=== PATIENT | female | born 1950 | race Caucasian/White ===

== ENCOUNTER 2020-09-21 00:58 | Emergency (ER) | payer MEDICARE, OTHER ==
[~2020-09-21] VITALS: Ht 167.6 cm; Wt 79.4 kg
[2020-09-21] VITALS (8 sets, daily range): BP systolic 173–207; BP diastolic 80–126
--- NOTE | 2020-09-21 01:14 | NUR ---
ED Nurse Note: pt walked into ED s/p mechanical fall and now experiencing pain in left elbow/arm. pt's left arm appears swollen with bump near the elbow. Pt reports she broke her hand 2 years ago. Bilateral radial pulses strong, bilateral hands warm, pt able to move fingers. Denies numbness, tingling.
--- NOTE | 2020-09-21 01:20 | NUR ---
ED Nurse Note: Pt reports history of HTN, does not take any medication. EDMD at bedside when pt stated her SBP 180-200 is her normal. EDMD advised pt to seek PMD and f/u to control BP.
--- NOTE | 2020-09-21 01:36 | Emergency Room Report ---
History of Present Illness General Chief Complaint: Multiple Trauma/Fall Source: Patient Present Illness HPI Patient is a 70-year-old female presents for increased upper extremity pain. Patient had recent fall. Reports have increased pain to the elbow and forearm. Has been able to move the hand normally. Injury occurred approximately 3 hours prior to arrival. Prior history of wrist fracture on the same side. Allergies: Coded Allergies: No Known Allergies (Unverified , 09/21/20) COVID-19 Screening Contact w/high risk pt: No Experienced COVID-19 symptoms?: No COVID-19 Testing performed SHEET HANGER: No Patient History Past Medical History: see triage record Reviewed Nursing Documentation: PMH: Agreed; PSxH: Agreed Nursing Documentation-PMH Past Medical History: No Stated History Review of Systems All Other Systems: negative except mentioned in HPI Physical Exam Vital Signs Date Time Temp Pulse Resp B/P (MAP) Pulse Ox O2 Delivery O2 Flow Rate FiO2 09/21/20 01:05 98.4 112 18 180/88 (118) 98 Room Air General Appearance: well appearing, no apparent distress, alert, GCS 15 Head: normocephalic, atraumatic ENT: hearing grossly normal, normal voice Neck: full range of motion, supple Respiratory: normal inspection, lungs clear, no respiratory distress, speaking full sentences Neurologic: alert, motor strength/tone normal, blindstitch lining feller III-XII nml as tested, oriented x3, normal gait Psychiatric: mood/affect normal Skin: no rash Procedures Procedural Sedation Consent: Written Time out called at: 02:45 Pre-Sedation Assessment: Eval. Immed. Prior to Sed, Pre-proc Edu. done, Plan for Sedation Discuss Airway Assessment (Malampati): I Heart: normal Lungs: normal Abdomen: normal Extremities: normal Procedures/Plans: Closed Reduction Plan for Moderate Sedation: Propofol ASA Score: II Procedure Narrative Patient was given successive 10 mg aliquots of propofol until adequately sedated. Patient was given total of 40 mg. She had subsequent adequate sedation. Elbow was reduced with axial traction and flexion. Post procedure x- ray showed adequate elbow joint reduction. Patient was placed in a posterior splint. She was neurovascularly intact after procedure. Pulses were intact. Good perfusion Communication: No Apparent Limitation Mental Status: Awake Respiration: Unlabored Skin Condition: WNL Abdomen: WNL Nausea: NO Vomiting: NO Medical Decision Making Diagnostic Impression: Primary Impression: Fall Additional Impressions: Dislocation, elbow closed Elbow fracture, left Hypertension Hyperglycemia ER Course Patient presented after a fall. Differential diagnosis include was not limited to contusion, fracture, dislocation among others. X-ray imaging was ordered to patient's recent trauma. X-ray imaging showed elbow dislocation. Patient was consented for propofol. Patient was sedated with propofol and elbow was reduced with axial traction. Patient tolerated this well. Patient did complain of hip pain however she refused x-ray imaging of the hip. She is placed in a posterior splint. Patient was advised to follow-up with orthopedics. She was given referral for Dr. Stephnes. She is also advised that she should have treatment for her blood pressure and was advised to follow-up with primary care physician for recheck. She is advised to return if worse. This medical record is generated with [employer] financial planning advisor software. There may be some financial planning advisor discrepancies related to use of this software Laboratory Tests Test 09/21/20 02:20 White Blood Count 12.6 K/UL (4.8-10.8) H Red Blood Count 4.31 M/UL (4.20-5.40) Hemoglobin 13.2 G/DL (12.0-16.0) Hematocrit 38.6 % (37.0-47.0) Mean Corpuscular Volume 90 FL (80-99) Mean Corpuscular Hemoglobin 30.7 PG (27.0-31.0) Mean Corpuscular Hemoglobin Concent 34.3 G/DL (32.0-36.0) Red Cell Distribution Width 12.8 % (11.6-14.8) Platelet Count 173 K/UL (150-450) Mean Platelet Volume 11.0 FL (6.5-10.1) H Neutrophils (%) (Auto) % (45.0-75.0) Lymphocytes (%) (Auto) % (20.0-45.0) Monocytes (%) (Auto) % (1.0-10.0) Eosinophils (%) (Auto) % (0.0-3.0) Basophils (%) (Auto) % (0.0-2.0) Sodium Level 140 MMOL/L (136-145) Potassium Level 3.0 MMOL/L (3.5-5.1) L Chloride Level 103 MMOL/L (98-107) Carbon Dioxide Level 26 MMOL/L (21-32) Blood Urea Nitrogen 29 mg/dL (7-18) H Creatinine 1.4 MG/DL (0.55-1.30) H Estimated Glomerular Filtration Rate 37.2 mL/min (>60) Glucose Level 185 MG/DL (74-106) H Calcium Level 9.7 MG/DL (8.5-10.1) Total Bilirubin 0.6 MG/DL (0.2-1.0) Aspartate Amino Transferase (AST) 25 U/L (15-37) Alanine Aminotransferase (ALT) 14 U/L (12-78) Alkaline Phosphatase 78 U/L (46-116) Total Protein 7.8 G/DL (6.4-8.2) Albumin 4.2 G/DL (3.4-5.0) Globulin 3.6 g/dL Albumin/Globulin Ratio 1.2 (1.0-2.7) Last Vital Signs Date Time Temp Pulse Resp B/P (MAP) Pulse Ox O2 Delivery O2 Flow Rate FiO2 09/21/20 01:05 98.4 112 18 180/88 (118) 98 Room Air Status: improved Disposition: HOME, SELF-CARE Condition: Stable Scripts Ibuprofen (IBUPROFEN*) 200 Mg Tablet 200 MG ORAL Q8H, #30 TAB 0 Refills Prov: Kevin Chawla MD 09/21/20 Hydrocodone Bit/Acetaminophen 5-325* (NORCO 5-325 TABLET*) 1 Each Tablet 1 TAB ORAL Q6H PRN for FOR PAIN, #10 TAB 0 Refills Prov: Kevin Chawla MD 09/21/20 Referrals: NOT CHOSEN [facility]/,REFERRING (PCP) Kevin Chawla MD Sep 21, 2020 01:35
--- NOTE | 2020-09-21 02:20 | NUR ---
ED Nurse Note: EDMD at bedside explaining risks and benefits of Elbow relocation under moderate sedation.
--- NOTE | 2020-09-21 02:21 | NUR ---
ED Nurse Note: Consent signed by pt
--- NOTE | 2020-09-21 02:24 | NUR ---
ED Nurse Note: Left elbow relocation under moderate sedation began. See Moderate Sedation Assessment.
[2020-09-21 02:37] LABS: HEMATOCRIT 38.6 % (37.0-47.0); HEMOGLOBIN 13.2 G/DL (12.0-16.0); MEAN CORPUSCULAR VOLUME 90 FL (80-99); PLATELET COUNT 173 K/UL (150-450); RED BLOOD COUNT 4.31 M/UL (4.20-5.40); RED CELL DISTRIBUTION WIDTH 12.8 % (11.6-14.8); WHITE BLOOD COUNT 12.6 K/UL (4.8-10.8)
[2020-09-21 02:52] LABS: ALANINE AMINOTRANSFERASE 14 U/L (12-78); ALBUMIN 4.2 G/DL (3.4-5.0); ALBUMIN/GLOBULIN RATIO 1.2 (1.0-2.7); ALKALINE PHOSPHATASE 78 U/L (46-116); ASPARTATE AMINO TRANSFERASE 25 U/L (15-37); BILIRUBIN,TOTAL 0.6 MG/DL (0.2-1.0); BLOOD UREA NITROGEN 29 mg/dL (7-18); CALCIUM 9.7 MG/DL (8.5-10.1); CARBON DIOXIDE 26 MMOL/L (21-32); CHLORIDE 103 MMOL/L (98-107); CREATININE 1.4 MG/DL (0.55-1.30); SODIUM 140 MMOL/L (136-145)
[2020-09-21] MEDS ORDERED: NORCO 5-325 TA1 EAC1 ORAL (02:56)
[2020-09-21] MEDS ORDERED: IBUPROFEN200 MG ORAL (02:56)
--- NOTE | 2020-09-21 03:13 | Diagnostic Imaging Report ---
EXAM: XR Left Elbow Complete, 3 or More Views CLINICAL HISTORY: PAIN TECHNIQUE: Frontal, lateral and oblique views of the left elbow. COMPARISON: No relevant prior studies available. FINDINGS: A true AP view was not provided. 2 fairly steep oblique views and 2 lateral views submitted. Multiple small bone densities in the region of the antecubital fossa indeterminate for avulsion fragments, donor site unknown. There is diffuse osteopenia. A displaced fracture is not identified. Recommend MRI or CT for further evaluation.
--- NOTE | 2020-09-21 03:45 | NUR ---
ER DISCHARGE NOTE: Patient is cleared to be discharged per ERMD, pt is aox4, on room air, with stable vital signs. Splint was placed on pt with arm sling. pt was given dc, paper prescription, copies of xrays with instructions to f/u with MD listed on DC paperwork, pt was able to verbalize understanding, pt id band and iv site removed without complications. pt is able to ambulate with steady gait. pt took all belongings. pt left in private vehicle.
--- NOTE | 2020-09-21 15:56 | Diagnostic Imaging Report ---
Indications: Left forearm pain Technique: Two views of the left forearm Comparison: None Findings: There is posterior dislocation of the elbow. This involves the radius as well as the ulna. Unclear as to whether there is a fracture. Postreduction image reported separately demonstrates possible bone fragments which are possibly fracture fragments Impression: Complete elbow dislocation. Possible one or more associated avulsion fractures
== END 2020-09-21 03:45 | disposition home or self-care (01) ==
LOC: EMR 01:20
DX: S53.125A Posterior dislocation of left ulnohumeral joint, initial encounter (principal); S42.402A Unspecified fracture of lower end of left humerus, initial encounter for closed fracture; I10 Essential (primary) hypertension; R73.9 Hyperglycemia, unspecified; W01.0XXA Fall on same level from slipping, tripping and stumbling without subsequent striking against object, initial encounter; Y93.9 Activity, unspecified; Y92.9 Unspecified place or not applicable
CPT/HCPCS: 24605; 36415; 73080; 73090; 80053; 85025; 96374; 99284; J2704; J8499